=== PATIENT | male | born 1985 | race Caucasian/White ===

== ENCOUNTER 2022-10-12 15:26 | Emergency (ER) | payer OTHER ==
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
[2022-10-12 17:04] VITALS: BP 123/89; PULSE 71; O2SAT 99
[2022-10-12] MEDS ORDERED: TORAdol 30 mg Injection IM ONE (18:02)
[2022-10-12] MEDS ORDERED: TORAdol 30 mg Injection ONE (18:09)
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
== END 2022-10-12 19:40 | disposition home or self-care (01) ==
LOC: ED 15:26
DX: M54.50 Low back pain, unspecified (principal); V89.2XXA Person injured in unspecified motor-vehicle accident, traffic, initial encounter
CPT/HCPCS: 72110; 72170; 96372; 99283; J1885

== ENCOUNTER 2023-12-04 16:34 | Emergency (ER) | payer OTHER ==
[2023-12-04 16:54] VITALS: BP 142/97; PULSE 103; RESP 20; TEMP 100; O2SAT 98
--- NOTE | 2023-12-04 17:03 | ERPHSYRPT ---
- History of Present Illness Time Seen by Provider: 12/04/23 17:03 Source: patient, family Exam Limitations: no limitations Patient Subjective Stated Complaint: C/O right earache for 2 days. Patient states right ear is bleeding. Triage Nursing Assessment: Patient ambulated back to ER without difficulties. He is alert and oriented; some hearing difficulties noted. Red blood noted in right ear canal. Physician History: This is a 38-year-old white male patient who presents with pain in his right ear for 2 days. He also senses pressure. Today, there was bleeding present. He has not had a fever. He denies cough. Timing/Duration: gradual onset, days (2) Severity: mild (Moderate) ENT Location: ear (R) Prearrival Treatment: no prearrival treatment Associated Symptoms: ear pain (R) Allergies/Adverse Reactions: No Known Drug Allergies Allergy (Verified 12/04/23 16:46) Hx Tetanus, Diphtheria Vaccination/Date Given: Yes Hx Influenza Vaccination/Date Given: No Hx Pneumococcal Vaccination/Date Given: No Immunizations Up to Date: Yes Travel Risk - International Travel Have you traveled outside of the country in past 3 weeks: No - Coronavirus Screening Are you exhibiting any of the following symptoms?: Yes Symptoms: Fever Close contact with a COVID-19 positive Pt in past 14-21 Days: No - Vaccine Status Have you recieved a Covid-19 vaccination: No - Review of Systems Constitutional: No Symptoms Eyes: No Symptoms Ears, Nose, & Throat: Ear Pain (Right ear), Ear Discharge (Right ear) Respiratory: No Symptoms Cardiac: No Symptoms Abdominal/Gastrointestinal: No Symptoms Genitourinary Symptoms: No Symptoms Musculoskeletal: No Symptoms Skin: No Symptoms Neurological: No Symptoms Psychological: No Symptoms Endocrine: No Symptoms Hematologic/Lymphatic: No Symptoms Immunological/Allergic: No Symptoms All Other Systems: Reviewed and Negative - Past Medical History Pertinent Past Medical History: Yes Other Medical History: WPW; abnormal heart beat - Past Surgical History Past Surgical History: No - Social History Smoking Status: Current every day smoker How long have you smoked: 20 years Exposure to second hand smoke: No Drug Use: none Patient Lives Alone: No - Nursing Vital Signs Nursing Vital Signs: Initial Vital Signs Temperature 100 F 12/04/23 16:47 Pulse Rate 103 H 12/04/23 16:47 Respiratory Rate 20 12/04/23 16:47 Blood Pressure 142/97 12/04/23 16:47 O2 Sat by Pulse Oximetry 98 12/04/23 16:47 Pain Scale Pain Intensity 3 - Physical Exam General Appearance: no apparent distress, alert, anxiety, thin Eye Exam: bilateral eye: normal inspection, PERRL, EOMI Ear Exam: right ear: bleeding, swelling, tenderness, TM red, left ear: canal normal, TM normal, bilateral ear: auricle normal Nasal Exam: normal inspection Throat Exam: normal, pharynx normal Neck Exam: normal inspection, non-tender, supple, full range of motion, trachea midline Cardiovascular/Respiratory Exam: chest non-tender, no respiratory distress Abdominal Exam: non-tender Neurologic Exam: alert, oriented x 3, cooperative, 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 The level of complexity in the workup performed is based on review of the patient's past medical history, review of the patient's medication list, review of the patient's drug allergy list, history present illness and physical findings on examination. This patient's workup does not require any laboratory radiographic studies. Counseled pt/family regarding: diagnosis, need for follow-up Medical Desision Making - Independent Historian Additional History obtained from: Family - Diagnostic Testing Diagnostic test were ordered, analyzed, and reviewed by me: No - Risk of complications The pt has a mod risk of morbidity or mortality based on: Need for prescription drug management - Departure Departure Disposition: Home Clinical Impression: Right otitis media Condition: Stable Critical Care Time: No Additional Instructions: Drink plenty of clear liquids. Take your antibiotics and steroids as prescribed. May also add Tylenol and ibuprofen for pain and fever control. Follow-up with your primary care provider tomorrow, 12/05/2023, to make arrangements for follow-up appointment for further evaluation and management. Prescriptions: Amoxicillin 500 mg Cap [Amoxil 500 mg] 500 mg PO TID #30 cap Prednisone 10 mg [Deltasone 10 mg] 10 mg PO TID #12 tablet
[2023-12-04] MEDS ORDERED: AMOXIL 500 MG ONE (17:44)
[2023-12-04] MEDS ORDERED: DELTASONE 20 MG ONE (17:44)
[2023-12-04] MEDS: AMOXIL 500 MG PO ONE (17:46)
[2023-12-04] MEDS: DELTASONE 20 MG PO ONE (17:46)
== END 2023-12-04 18:11 | disposition home or self-care (01) ==
LOC: ED 16:34
DX: H66.91 Otitis media, unspecified, right ear (principal); Z79.52 Long term (current) use of systemic steroids; Z28.310 Unvaccinated for COVID-19; Z72.0 Tobacco use
CPT/HCPCS: 99282; A9270-GY